=== PATIENT | female | born 1990 | race Caucasian/White ===

== ENCOUNTER 2023-08-22 14:26 | Emergency (ER) | payer SELFPAY ==
--- OUTSIDE RECORDS SUMMARY | 2023-08-22 14:29 | XMS REPORT | Continuity of Care Document ---
Author Name Unknown Address [address] [facility] [address] [place] [address] [facility] Address [address] [facility] [address] [place] [address] Care Team Providers Care Oil Burner Name Role Phone KNOW, DOES_NOT Admitting Clinician Unavailable Payers Payer Name Policy Type Policy Number Effective Date Expirati on Date Source Quincy Martin [id number] 2017 00:00:00 Allergies, Adverse Reactions, Alerts Allergy Name Allergy Type Status Severity Reaction(s) Onset Date Inactive Date Treating Clinician Comments Source No Known Allergie s DA Active U 05-10 00:00: [address] [facility] No Known Allergie s DA Active U 05-10 00:00: [address] [facility] No Known Intolera nces DA Active U 2008-05 00:00: [address] [facility] Encounters Start Date/Time End Date/Time Encounter Type Admission Type Attending Clinicians Care Facility Care Department Encounter ID Source 2021-07-28 12:01:29 Outpatient [facility] [id number] [facility] 2019-05-05 02:14:00 Inpatient [facility] NEVAEH [id number] [facility] Results Test Description Test Time Test Comments Results Result Co mments Source - CT HEAD/BRAIN W/O [id number] 03:04:00Patient Name: BESS OLGUIN Unit No: [id number] EXAMS: CPT CODE: [id number] CT HEAD/BRAIN W/O CONT 09951 EXAM: - CT HEAD/BRAIN W/O CONT LOCATION: H57 HISTORY: 29 years-year old Female with poss. seizure TECHNIQUE: Computerized tomography images from the skull base to the vertex were obtained. Coronal and sagittal reformatted images are provided. This exam was performed according to our departmental dose-optimization program, which includes automated exposure control, adjustment of the mA and/or kV according to patient size and/or use of iterative reconstruction technique COMPARISON: None FINDINGS: Brain: The brain parenchyma is unremarkable. There is no evidence of an acute territorial infarct. There is no mass effect, midline shift, or parenchymal edema. Ventricles/Extra-axial spaces:There is no acute intracranial hemorrhage or extra-axial fluid collection. The ventricles are unremarkable. No basal cistern effacement. Bones: There is no evidence of acute displaced calvarial fracture. Sinuses: The visualized paranasal sinuses and mastoid air cells are clear. Other/Soft Tissues: Unremarkable. IMPRESSION: 1. No CT evidence of acute intracranial abnormality. at 0304 Reported and signed by: Nish Morley MD CC: Álvaro Parker MD Dictated Date/Time: 05/05/2019 (0304) Technologist: Joe Yap CTDI: 45.37 DLP:819.60 Trnscrpt: 05/05/2019 (0304) Sherry.[email or web address] [facility] NAME: BESS OLGUIN [address] [place] [address] Blvd PHYS: Álvaro Schumacher MD [place], [place] [address] : 1990 AGE: 29 SEX: F LOC: B.ERS PHONE #: [phone] EXAM DATE: 05/05/2019 STATUS: PRE ER FAX #: [phone] RAD #: D/C DT PAGE 1 Signed Report Patient Name: BESS OLGUIN Unit No: [id number] EXAMS: CPT CODE: [id number] CT HEAD/BRAIN W/O CONT 12419 (Continued) Orig Print D/T: S: 05/05/2019 (0307) LUCINA Black NAME: BESS OLGUIN [address] [place] [address] Blvd PHYS: Álvaro Schumacher [place], [place] [address] : 1990 AGE: 29 SEX: F LOC: B.ERS PHONE #: [phone] EXAM DATE: 05/05/2019 STATUS: PRE ER FAX #: [phone] RAD #: D/C DT PAGE 2 Signed ReportCHEMISTRY 7 [id number] 02:53:00* Test Item Value Reference Range Interpretation Comme nts IONIZED CALCIUM (test code = CAIABG) mmol/L 1.13-1.32 ISTAT-TCO2 VENOUS (test code = TCO2VP) MMOL/L 21-32 N ISTAT-SODIUM (test code = NAP) MMOL/L 135-148 ISTAT-POTASSIUM (test code = KP) MMOL/L 3.5-5.9 ISTAT-CHLORIDE (test code = CLP) MMOL/L 98-106 ISTAT-ANION GAP (test code = GAPP) MEQ/L 10-20 ISTAT-GLUCOSE (test code = GLUP) MG/DL 70-119 N ISTAT-BUN (test code = BUNP) MG/DL 8-28 N BEDSIDE CREATININE (test cod e = CREATBED) MG/DL 0.6-1.2 N GLOMERULAR FILTRATION RATE P OC (test code = GFRBED) 86 71-165 N CHEMISTRY 7 [id number] 02:53:00* Test Item Value Reference Range Interpretation Comme nts IONIZED CALCIUM (test code = CAIABG) 1.17 mmol/L 1.13-1.32 N ISTAT-TCO2 VENOUS (test code = TCO2VP) 22 MMOL/L 21-32 N ISTAT-SAMPLE SOURCE (test code = SRCIST) VENOUS SPECIMEN Descript Specimen ISTAT-SODIUM (test code = NAP) 137 MMOL/L 135-148 N ISTAT-POTASSIUM (test code = KP) 3.8 MMOL/L 3.5-5.9 N ISTAT-CHLORIDE (test code = CLP) 105 MMOL/L 98-106 N ISTAT-ANION GAP (test code = GAPP) 16.0 MEQ/L 10-20 N ISTAT-GLUCOSE (test code = GLUP) 117 MG/DL 70-119 N ISTAT-BUN (test code = BUNP) 10 MG/DL 8-28 N BEDSIDE CREATININE (test code = CREATBED) 0.8 MG/DL 0.6-1.2 N GLOMERULAR FILTRATION RATE POC (test code = GFRBED) 86 71-165 N Notes Date/Time Note Provider Source 2019-05-05 03:16:00 [id number] 6:00 [facility] [place] [facility] ([facility])EMERGENCY PROVIDER REPORTREPORT#:[id number] REPORT STATUS: SignedDATE:05/05/19 TIME: 0316 PATIENT: BESS OLGUIN UNIT #: [id number]#: [id number] ROOM/BED:AGE: 29 SEX: F PCP PHYS: DOES_NOT KNOWSERVICE AUTHOR: Álvaro Parker MD * ALL edits or amendments must be made on the electronic/computer document * HPI-General Illness Free Text HPI NotesFree Text HPI Notes29 y/o F presents to the ED from alf with c/o head pain following a possible seizure with LOC and hitting the floor. Pt has a hx of seizures, which she does not take medicine for, and stated that she "felt like she was going to have a seizure", but per the EMS there was no witness of the fall, or evidence of seizure. Pt has a hx of anxiety. There were no further complaints given at this time. GeneralConfirmed Patient YesPatient Type New patientInitial Greet Date/Time 05/05/19 0218Assumed Care at Time 0220 Date 05/05/19 PresentationChief Complaint Possible seizure, LOC, and Head painHx Obtained From ParamedicSudden in Onset? YesOnset Occurred TodaySymptom Duration Since onsetProgression since Onset ConstantCaused by LOCContext: [facility] HeadQuality PainfulRadiationDoes not radiate. Severity: Onset MildSeverity: Current MildAssociated withReports: Loss of consciousness. Associated Other Pt denies other symptoms Portions of this section were scribed by Tricia Gonsales on 05/05/19 at 0329 Review of Systems ROS StatementsAll systems rev neg except as marked. Review of SystemsConstitutionalDenies: Chills, Fever. EyesDenies: Blurred R, Blurred L. Ears/Nose/ThroatDenies: Ear drainage R, Ear drainage L. RespiratoryDenies: Cough, productive, Shortness of breath. CardiovascularDenies: Chest pain, Palpitations. GIDenies: Abdominal pain, Vomiting. FemaleDenies: Dysuria, Flank pain. MusculoskeletalDenies: Back pain, Extremity pain. SkinDenies: Abrasion, Abscess. Allergy/ImmunDenies: Hives, Itching. NeurologicReports: Change LOC. Denies: Confusion. PsychiatricReports: Anxiety. Denies: Suicidal ideation. Portions of this section were scribed by Tricia Gonsales on 05/05/19 at 0318 Past Medical History - AdultStated Complaint FALL, SYNCOPE. HX SZAllergiesCoded Allergies:No Known Allergies (05/10/18) Home MedicationsReported MedicationshydrOXYzine PAMOATE (VISTARIL) 50 MG PO QAM hydrOXYzine PAMOATE (VISTARIL) 100 MG PO QPM MIRTAZAPINE (REMERON) 45 MG PO BEDTIME SERTRALINE (ZOLOFT) 100 MG PO QPM Additional Medical HistoryNone reportedAdditional Surgical Historynone reportedAdditional Family HistorynoncontributorySmoking status for patients 13 years old or older: Former Smoker Portions of this section were scribed by Tricia Gonsales on 05/05/19 at 0316 Physical Exam Vital SignsVital SignsFirst Documented: Result Date Time Pulse Ox 98 05/05 214 B/P 120/89 05/05 214 B/P Mean 99 05/05 214 O2 Delivery Room air 05/05 214 Temp 98.6 05/05 214 Pulse 112 05/05 214 Resp 18 05/05 214 Last Documented: Result Date Time Pulse Ox 98 05/05 318 B/P 120/79 05/05 318 B/P Mean 92 05/05 318 O2 Delivery Room air 05/05 318 Pulse 78 05/05 318 Resp 18 05/05 318 Temp 98.6 05/05 214 Review of Vital Signs Reviewed Physical ExamGeneral/Const General/Const Awake, Alert Text/Dict NotesSoft tissue swelling to L temporal areaEyes Eyes EOMI Text/Dict NotesDilated pupilsEars/Nose/Throat Ears/Nose/Throat Airway patent, Mucous membranes moistMS Neck Neck Full range of motion, Non-tenderResp/Chest Respiratory/Chest Breath sounds NL, Breath sounds = bilatCardiovascular Cardiovascular Heart rate NL, Regular rhythm, Heart sounds NLAbdomen/GI Abdomen/GI Soft, Non-tenderMS Back Back Full range of motion, Non-tenderMS Upper Extrem Upper Extremity/MS Full range of motion, Non-tenderMS Wrist/Hand Wrist/Hand Full range of motion, Non-tenderMS Lower Extrem Lower Ext/Pelvis/MS Full range of motion, Non-tenderMS Ankle/Foot Ankle/Foot Full range of motion, Non-tenderSkin Skin Color NL, No rashNeurologic Neurologic Oriented X3, Speech NLPsychiatric Text/Dict NotesBizare affect Portions of this section were scribed by Tricia Gonsales on 05/05/19 at 0329 Interpretation Diagnostics Lab Results InterpretationResultsLaboratory Tests: 05/05 05/05 0250 0243 Blood Gas VBG Total CO2 (21 - 32 MMOL/L) 22 Ionized Calcium (1.13 - 1.32 mmol/L) 1.17 Instrument (Specimen Descript) VENOUS SPECIMEN Chemistry POC Sodium (135 - 148 MMOL/L) 137 POC Potassium (3.5 - 5.9 MMOL/L) 3.8 POC Chloride (98 - 106 MMOL/L) 105 Anion Gap (10 - 20 MEQ/L) 16.0 POC BUN (8 - 28 MG/DL) 10 POC Creatinine (0.6 - 1.2 MG/DL) 0.8 Estimated GFR (MDRD) (71 - 165) 86 POC Glucose (70 - 119 MG/DL) 117 Prolactin (2.8 - 29.2 NG/ML) 11.5 Recent Impressions:CAT SCAN - CT HEAD/BRAIN W/O CONT 05/05 0240 Report Impression - Status: SIGNED Entered: 05/05/2019 0307 IMPRESSION: 1. No CT evidence of acute intracranial abnormality. Impression By: [email or web address] - Nish Morley MD Point of Care TestingPulse Oximetry Pulse Ox % 98 On: Room air Interpretation Interpreted by me Time 317 Portions of this section were scribed by Tricia Gonsales on 05/05/19 at 0316 Re-Evaluation MDM Re-Evaluation/Progress #1Text/Dict NoteRe-evaluated pt. Reviewed pt's lab and imaging results. Discussed pt's current condition and sx. Pt has been made aware of their diagnosis. Advised that pt will be admitted for further evaluation and care. Pt understands and is agreeable to plan of care. All questions/concerns were addressed.Time of Re-Eval 317 Portions of this section were scribed by Tricia Gonsales on 05/05/19 at 0316 Patient Discharge Departure Vital Signs/ConditionVital SignsFirst Documented: Result Date Time Pulse Ox 98 05/05 0215 B/P 120/89 05/05 0215 B/P Mean 99 05/05 0215 O2 Delivery Room air 05/05 214 Temp 98.6 05/05 0215 Pulse 112 05/05 0215 Resp 18 05/05 0215 Last Documented: Result Date Time Pulse Ox 98 05/05 0319 B/P 120/79 05/05 0319 B/P Mean 92 05/05 0319 O2 Delivery Room air 05/05 318 Pulse 78 05/05 031 Resp 18 05/05 031 Temp 98.6 05/05 0215 All vital signs available at the time of this entry have been reviewed. Clinical ImpressionClinical ImpressionPrimary Impression: Head contusionTime of Impression 316 Disposition DecisionDischarge )( Discharged to Home Yes )( Time 316 )( Date 05/05/19 Supervising Physician Note Scribe StatementTricia Gonsales, 05/05/19316, scribing for and in the presence of [Álvaro Parker].Signed By: Tricia Gonsales, 05/05/19316 Provider Scribed StatementI personally performed the services described in this documentation and reviewedthe documentation that was dictated to the scribe(s) in my presence, and it accurately records my words and actions. Álvaro Parker, 05/05/19 Portions of this section were scribed by Tricia Gonsales on 05/05/19 at 0329 at 2141RPT #:[id number] OF REPORTUnited [facility] Healthcare System department [id number]:16:00B.[id number] ilable for patient [id number]:41:53 [facility]
[2023-08-22 15:45] LABS: Absolute Basophils 0.1 K/uL (0-0.5); Absolute Eosinophils 0.1 K/uL (0-0.5); Absolute Lymphocytes (CBC) 1.8 K/uL (0.7-4.9); Absolute Monocytes 0.5 K/uL (0.1-1.3); Absolute Neutrophil 3.7 K/uL (1.8-8.0); Basophils % 1.4 % (0-1.3); Eosinophils % 1.5 % (0-4.4); Hematocrit 42.1 % (36.0-45.0); Hemoglobin 14.1 g/dL (12.0-15.0); Lymphocytes % 28.5 % (15.3-44.8); MCH 29.2 pg (27.0-35.0); MCHC 33.6 g/dL (32.0-36.0); MPV 7.6 fL (7.6-11.3); Monocytes % 8.6 % (3.3-12.3); Nucleated Red Blood Cells % 0.1 % (0-0); Platelets 505 thou/uL (152-406); RBC Red Blood Cell Count 4.84 M/uL (3.86-4.86); Red Cell Distribution Width 13.9 % (12.1-15.2)
[2023-08-22 16:21] LABS: Anion Gap 9.8 mEq/L (5.0-15.0); BUN Blood Urea Nitrogen 6 mg/dL (7-18); Bicarbonate 27 mEq/L (21-32); Glomerular Filtration Rate 98 ml/min (=/>90); Glucose Level 113 mg/dL (74-106); Potassium 2.8 mEq/L (3.5-5.1); Sodium Level 136 mEq/L (136-145)
[2023-08-22 16:22] LABS: Specific Gravity 1.028 (1.005-1.030); Sqamous Epithelial 20-50 /HPF (None Seen); Urine Bacteria None Seen /HPF (<20); Urine Bilirubin NEGATIVE (Negative); Urine Blood Negative (Negative); Urine Clarity Extremely Turbid (Clear); Urine Color Yellow (Yellow); Urine Culture Reflex Order NOT NEEDED; Urine Glucose NEGATIVE (Negative); Urine Ketones TRACE (Negative); Urine Microscopic Reflex YN ORDER UMIC; Urine Mucus 4+ /HPF (None Seen); Urine Nitrite NEGATIVE (Negative); Urine Protein 1+ (Negative); Urine RBC 21-50 /HPF (None Seen); Urine Urobilinogen Normal (Normal); Urine WBC 20-50 /HPF (<5); Urine WBC Clump Occasional /HPF (None Seen)
[2023-08-22 16:34] LABS: HCG, Quantitative < 1 mIU/mL (1-3)
[2023-08-22 16:37] LABS: Specific Gravity 1.028 (1.005-1.030)
[2023-08-22] MEDS ORDERED: POTASSIUM 25 MEQ EFFERV TAB ONE (16:49)
[2023-08-22] MEDS ORDERED: NA CHLORIDE 0.9% 100 ML ONE (17:52)
[2023-08-22] MEDS ORDERED: CEFTRIAXONE 1000 MG/VIAL ONE (17:52)
--- NOTE | 2023-08-22 17:53 | RAD REPORT ---
EXAM DESCRIPTION: US - Transvaginal Study Probe - 08/22/2023 5:07 pm CLINICAL HISTORY: Vaginal bleeding COMPARISON: 1999 FINDINGS: The uterus measures 7 x 3 x 4 cm. A fibroid is not seen. The endometrial stripe measures 5 millimeters Right ovary is normal in size and echotexture. A 3.7 centimeter left ovarian cyst. It likely is benign. Blood flow is present to the left ovary. The right and left adnexa unremarkable No significant free fluid is seen. IMPRESSION: 3.7 centimeter left ovarian cyst. Follow up imaging is not recommended
--- NOTE | 2023-08-22 17:57 | ER ---
Nurse's Notes [facility] Name: Imelda Hill Age: 33 yrs Sex: Female : 1990 Arrival Date: 08/22/2023 Time: 14:26 Bed 4 Private MD: Diagnosis: Abnormal uterine and vaginal bleeding, unspecified;UTI/ Urinary tract infection, site not specified;Hypokalemia Presentation: 08/21 14:41 Chief complaint: Patient states: Vaginal bleeding for 3 days. Now has pelvic pressure ll1 and pain. Thought maybe she was having a miscarriage although she had no positive tests. Coronavirus screen: Client denies travel out of the [place] in the last 14 days. At this time, the client does not indicate any symptoms associated with coronavirus-19. Ebola Screen: Patient denies travel to an Ebola-affected area in the 21 days before illness onset. Initial Sepsis Screen: Does the patient meet any 2 criteria? No. Patient's initial sepsis screen is negative. Does the patient have a suspected source of infection? No. Patient's initial sepsis screen is negative. Risk Assessment: Do you want to hurt yourself or someone else? Patient reports no desire to harm self or others. Onset of symptoms was August 20, 2023. 14:41 Method Of Arrival: Ambulatory ll1 14:41 Acuity: DEBBY 3 ll1 Historical: - Allergies: 14:34 No Known Drug Allergies; bp - PMHx: 14:41 None; ll1 - PSHx: 14:41 LEEP; ll1 - Immunization history:: Adult Immunizations up to date. - Infectious Disease History:: Denies. - Social history:: Smoking status: Reported history of juuling and/or vaping. Screenin:42 [facility] ED Fall Risk Assessment (Adult) Score/Fall Risk Level 0 - 2 = Low Risk. Abuse iw screen: Denies threats or abuse. Denies injuries from another. Nutritional screening: No deficits noted. Tuberculosis screening: No symptoms or risk factors identified. Assessment: 15:42 General: Appears in no apparent distress. Behavior is. Pain: Complains of pain in groin iw and suprapubic area. Neuro: Level of Consciousness is awake, alert, obeys commands, Oriented to person, place, time, situation, Moves all extremities. Full function. Respiratory: Respiratory effort is even, unlabored, Respiratory pattern is regular, symmetrical. GI: Abdomen is non-distended. : Reports pain in suprapubic area vaginal bleeding that is. Derm: Skin is intact, is healthy with good turgor. Musculoskeletal: Range of motion: intact in all extremities. 16:55 Reassessment: Patient and/or family updated on plan of care and expected duration. Pain rs5 level reassessed. Patient is alert, oriented x 3, equal unlabored respirations, skin warm/dry/pink. Patient denies pain at this time. Patient states feeling better. Patient states symptoms have improved. 17:57 Reassessment: No changes from previously documented assessment. rs5 Vital Signs: 14:41 BP 141 / 77; Pulse 73; Resp 16; Temp 97; Pulse Ox 100% ; Weight 88.45 kg; Height 5 ft. ll1 6 in. ; Pain 7/10; 17:00 BP 135 / 79; Pulse 70; Resp 18; Temp 97(O); Pulse Ox 99% on R/A; rs5 17:58 BP 130 / 80; Pulse 75; Resp 18; Pulse Ox 99% on R/A; rs5 14:41 Body Mass Index 31.47 (88.45 kg, 167.64 cm) ll1 14:41 Pain Scale: Adult ll1 ED Course: 14:29 Patient arrived in ED. rg4 14:31 Claribel Raza PA-C is PHCP. sb4 14:31 Carmelo Evangelista MD is Attending Physician. sb4 14:34 Arm band placed on Patient placed in an exam room, on a stretcher. bp 14:43 Triage completed. ll1 14:45 Patient has correct armband on for positive identification. Placed in gown. Bed in low rs5 position. Call light in reach. Side rails up X2. 15:05 Jason Lubin, BART is Primary Nurse. rs5 15:31 Initial lab(s) drawn, Repeat lab(s) drawn. sent to lab. Urine collected: clean catch jg11 specimen, clear, marifer colored. Inserted saline lock: 20 gauge in right antecubital area, using aseptic technique. Blood collected. 15:31 Abo/rh Typing Sent. jg11 15:31 CBC with Diff Sent. jg11 15:31 Test, Urine Sent. jg11 15:31 Quantitative Hcg Sent. jg11 15:31 Urinalysis w/ reflexes Sent. jg11 17:09 Transvaginal Study (probe) In Process Unspecified. EDMS 17:56 Ailza Garcia MD is Referral Physician. sb4 17:57 No provider procedures requiring assistance completed. rs5 18:14 IV discontinued, intact, bleeding controlled, No redness/swelling at site. Pressure bp dressing applied. 18:15 Provided Education on: N/A. bp Administered Medications: 17:13 Drug: Potassium PO Effervescent Tablet 50 mEq PO once; dissolve in 4 ounces of water or iw juice Route: PO; 17:59 Follow up: Response: No adverse reaction rs5 17:59 Drug: Rocephin IV 1 grams IV at calculated rate once; Given slow IV push per pharmacy rs5 instructions Route: IV; Rate: calculated rate; Site: left antecubital; 17:59 Follow up: Response: No adverse reaction rs5 18:08 Follow up: IV Status: Completed infusion; IV Intake: 100ml bp Medication: 15:43 VIS not applicable for this client. iw Intake: 18:08 IV: 100ml; Total: 100ml. bp Outcome: 17:56 Discharge ordered by MD. sb4 18:14 Discharged to home ambulatory, with family, bp 18:14 Condition: stable 18:14 Discharge instructions given to patient, Instructed on discharge instructions, follow up and referral plans. medication usage, Demonstrated understanding of instructions, follow-up care, medications, Prescriptions given X 1, 18:15 Patient left the ED. bp Signatures: Dispatcher [employer] EDNY Reyna Vera RN RN iw Garcia, Rubi rg4 Lucho Byrne RN RN bp Quyen Olivia RN RN ll1 Claribel Raza, PA-C PA-C sb4 Jason Lubin RN RN rs5 Quincy Carty jg11
--- NOTE | 2023-08-22 17:57 | EDPHYS ---
Physician Documentation [facility] Name: Imelda Hill Age: 33 yrs Sex: Female : 1990 Arrival Date: 08/22/2023 Time: 14:26 Bed 4 Private MD: ED Physician Carmelo Evangelista HPI: 08/21 14:49 This 33 yrs old Female presents to ER via Ambulatory with complaints of Vaginal Pain. sb4 14:49 vaginal bleeding and pelvic pain x 3 days. does not think it is her menstrual cycle, sb4 thinks she may be having a miscarriage, although has not had a positive test. spotted last month, last normal menstrual cycle 2 months ago. Historical: - Allergies: 14:34 No Known Drug Allergies; bp - PMHx: 14:41 None; ll1 - PSHx: 14:41 LEEP; ll1 - Immunization history:: Adult Immunizations up to date. - Infectious Disease History:: Denies. - Social history:: Smoking status: Reported history of juuling and/or vaping. ROS: 14:49 Positive for pelvic pain, vaginal bleeding, menstrual abnormality, sb4 14:49 Constitutional: Negative for fever, chills, and weight loss, 14:49 All other systems are negative, Exam: 14:49 Constitutional: This is a well developed, well nourished patient who is awake, alert, sb4 and in no acute distress. Head/Face: Normocephalic, atraumatic. Eyes: Extra-ocular motions intact. Periorbital areas with no swelling, redness, or edema. ENT: Mucous membranes moist. Cardiovascular: Regular rate and rhythm with a normal S1 and S2. Respiratory: Lungs have equal breath sounds bilaterally, clear to auscultation and percussion. No rales, rhonchi or wheezes noted. No increased work of breathing, no retractions or nasal flaring. Abdomen/GI: Soft, non-tender, no distension. Skin: Warm, dry with normal turgor. Normal color with no rashes, no lesions, and no evidence of cellulitis. MS/ Extremity: Pulses equal, no cyanosis. Neurovascular intact. Full, normal range of motion. Neuro: Awake and alert, GCS 15, oriented to person, place, time, and situation. Motor strength 5/5 in all extremities. Sensory grossly intact. Vital Signs: 14:41 BP 141 / 77; Pulse 73; Resp 16; Temp 97; Pulse Ox 100% ; Weight 88.45 kg; Height 5 ft. ll1 6 in. ; Pain 7/10; 17:00 BP 135 / 79; Pulse 70; Resp 18; Temp 97(O); Pulse Ox 99% on R/A; rs5 17:58 BP 130 / 80; Pulse 75; Resp 18; Pulse Ox 99% on R/A; rs5 14:41 Body Mass Index 31.47 (88.45 kg, 167.64 cm) ll1 14:41 Pain Scale: Adult ll1 MDM: 14:44 Patient medically screened. sb4 17:56 Data reviewed: vital signs, nurses notes, lab test result(s), radiologic studies, and sb4 as a result, I will discharge patient. Counseling: I had a detailed discussion with the patient and/or guardian regarding the historical points, exam findings, and any diagnostic results supporting the discharge/admit diagnosis, lab results, radiology results, to return to the emergency department if symptoms worsen or persist or if there are any questions or concerns that arise at home. 08/21 14:48 Order name: Abo/rh Typing; Complete Time: 16:17 sb4 08/21 14:48 Order name: Basic Metabolic Panel; Complete Time: 16:36 sb4 08/21 14:48 Order name: CBC with Diff; Complete Time: 15:48 sb4 08/21 14:48 Order name: Test, Urine; Complete Time: 16:39 sb4 08/21 14:48 Order name: Quantitative Hcg; Complete Time: 16:36 sb4 08/21 14:48 Order name: Urinalysis w/ reflexes; Complete Time: 16:30 sb4 08/21 16:37 Order name: Transvaginal Study (probe); Complete Time: 17:54 sb4 08/21 14:48 Order name: IV Saline Lock; Complete Time: 15:31 sb4 08/21 14:48 Order name: Labs collected and sent; Complete Time: 15:31 sb4 Administered Medications: 17:13 Drug: Potassium PO Effervescent Tablet 50 mEq PO once; dissolve in 4 ounces of water or iw juice Route: PO; 17:59 Follow up: Response: No adverse reaction rs5 17:59 Drug: Rocephin IV 1 grams IV at calculated rate once; Given slow IV push per pharmacy rs5 instructions Route: IV; Rate: calculated rate; Site: left antecubital; 17:59 Follow up: Response: No adverse reaction rs5 18:08 Follow up: IV Status: Completed infusion; IV Intake: 100ml bp Disposition: 19:02 Co-signature as Attending Physician, Carmelo Evangelista MD I reviewed the patient's care rt provided by the Advanced Practice Provider and agree with the diagnosis and treatment plan. Disposition Summary: 08/22/23 17:56 Discharge Ordered Notes: Location: Home sb4 Problem: new sb4 Symptoms: have improved sb4 Condition: Stable sb4 Diagnosis - Abnormal uterine and vaginal bleeding, unspecified sb4 - UTI/ Urinary tract infection, site not specified sb4 - Hypokalemia sb4 Followup: sb4 - With: Aliza Garcia MD - When: As needed - Reason: Recheck today's complaints, Re-evaluation by your physician Discharge Instructions: - Discharge Summary Sheet sb4 - Abnormal Uterine Bleeding sb4 - Urinary Tract Infection, Adult, Rhuf-ll-Wwfm sb4 - Hypokalemia sb4 Forms: - Thank You Letter sb4 - Antibiotic Education sb4 - Patient Portal Instructions sb4 - Leadership Thank You Letter sb4 Prescriptions: - Macrobid 100 mg Oral Capsule - take 1 capsule ORAL route every 12 hours for 7 days; 14 capsule; Refills: 0, sb4 Product Selection Permitted Signatures: Dispatcher [employer] EDReyna Aguiar RN RN Lucho Byrne RN RN bp Quyen Olivia RN RN ll1 Claribel Raza PA-C PA-C sb4 Carmelo Evangelista MD MD rt Jason Lubin RN RN rs5 Corrections: (The following items were deleted from the chart) 14:49 14:49 ABO/RH TYPING+BB.LAB.BRZ ordered. EDMS EDMS 14:49 14:49 BASIC METABOLIC PANEL+C.LAB.BRZ ordered. EDMS EDMS 14:49 14:49 CBC+H.LAB.BRZ ordered. EDMS EDMS 14:49 14:49 Test, Urine+UC.LAB.BRZ ordered. EDMS EDMS 14:49 14:49 QUANTITATIVE HCG+C.LAB.BRZ ordered. EDMS EDMS 14:49 14:49 Urinalysis+U.LAB.BRZ ordered. EDMS EDMS
[2023-08-22 18:23] VITALS: BP 130/80; TEMP 97; O2SAT 99
== END 2023-08-22 18:15 | disposition home or self-care (01) ==
LOC: ER 14:26
DX: N39.0 Urinary tract infection, site not specified (principal); E87.6 Hypokalemia
CPT/HCPCS: 36415; 76830; 80048; 81001; 81025; 84702; 85025; 86900; 86901; 96374; 99284; J0696

== ENCOUNTER 2023-10-29 18:50 | Emergency (ER) | payer BC, OTHER ==
--- OUTSIDE RECORDS SUMMARY | 2023-10-29 18:53 | XMS REPORT | Continuity of Care Document ---
Author Name Unknown Address [address] [place] [address] [facility] Address 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 Mill Operator Name Role Phone KNOW, DOES_NOT Admitting Clinician Unavailable Payers Payer Name Policy Type Policy Number Effective Date Expirati on Date Source Quincy Martin [id number] 2017 00:00:00 Allergies, Adverse Reactions, Alerts Allergy Name Allergy Type Status Severity Reaction(s) Onset Date Inactive Date Treating Clinician Comments Source No Known Allergie s DA Active U 05-10 00:00: 00 [facility] No Known Allergie s DA Active U 05-10 00:00: 00 [facility] No Known Intolera nces DA Active U 2008-05 00:00: 00 [facility] Encounters Start Date/Time End Date/Time Encounter Type Admission Type Attending Clinicians Care Facility Care Department Encounter ID Source 2021-07-28 12:01:29 Outpatient [facility] [id number] [facility] 2019-05-05 02:14:00 Inpatient [facility] NEVAEH [id number] [facility] Results Test Description Test Time Test Comments Results Result Co mments Source - CT HEAD/BRAIN W/O [id number] 03:04:00Patient Name: BESS OLGUIN Unit No: [id number] EXAMS: CPT CODE: [id number] CT HEAD/BRAIN W/O CONT 06968 EXAM: - CT HEAD/BRAIN W/O CONT LOCATION: [...] Yap CTDI: 45.37 DLP:819.60 Trnscrpt: 05/05/2019 (0304) [email or web address] [facility] NAME: BESS OLGUIN [address] [place] [address] Blvd PHYS: Álvaro Schumacher MD [place], [place] [address] : 1990 AGE: 29 SEX: F LOC: B.ERS PHONE #: [phone] EXAM DATE: 05/05/2019 STATUS: PRE ER FAX #: [phone] RAD #: D/C DT PAGE 1 Signed Report Patient Name: BESS OLGUIN Unit No: [id number] EXAMS: CPT CODE: [id number] CT HEAD/BRAIN W/O CONT 80332 (Continued) Orig Print D/T: S: 05/05/2019 (0307) LUCINA Blakc NAME: BESS OLGUIN [address] [place] [address] Blvd PHYS: Álvaro Schumacher [place], [place] [address] : 1990 AGE: 29 SEX: F LOC: B.ERS PHONE #: [phone] EXAM DATE: 05/05/2019 STATUS: PRE ER FAX #: [phone] RAD #: D/C DT PAGE 2 Signed ReportCHEMISTRY 7 [id number] 02:53:00* Test Item Value Reference Range Interpretation [...] = GFRBED) 86 71-165 N CHEMISTRY 7 [id number] 02:53:00* Test Item Value Reference Range Interpretation [...] Notes Date/Time Note Provider Source 2019-05-05 03:16:00 [id number]:1 6:00 [facility] ([facility])EMERGENCY PROVIDER REPORTREPORT#:[id number] REPORT STATUS: SignedDATE:05/05/19 TIME: 0316 PATIENT: BESS OLGUIN UNIT #: [id number]#: [id number] ROOM/BED:AGE: 29 SEX: F PCP PHYS: DOES_NOT KNOWSERVICE AUTHOR: Álvaro Parker MD * ALL edits or amendments must be made on the electronic/computer document * HPI-General Illness Free Text HPI NotesFree Text HPI Notes29 y/o F presents to the ED from senior care with c/o head pain following a possible [...] since Onset ConstantCaused by LOCContext: [facility]urred at [facility] HeadQuality PainfulRadiationDoes not radiate. Severity: Onset [...] 05/05 0215 O2 Delivery Room air 05/05 021 Temp 98.6 05/05 0215 Pulse 112 05/05 0215 Resp 18 05/05 0215 Last Documented: Result Date Time Pulse Ox 98 05/05 0319 B/P 120/79 05/05 0319 B/P Mean 92 05/05 0319 O2 Delivery Room air 05/05 318 Pulse 78 05/05 0319 Resp 18 05/05 0319 Temp 98.6 05/05 0215 All vital signs [...] Gonsales on 05/05/19 at 0329 at 2141RPT #:[id number] OF [facility] [id number]:16:[id number] ilable for patient [id number]:41:53 [facility]
[2023-10-29] MEDS ORDERED: HYDROCODONE/APAP 7.5/325 MG TAB ONE (19:49)
[2023-10-29] MEDS ORDERED: KETOROLAC 30 MG/ML INJ ONE (19:49)
--- NOTE | 2023-10-29 20:20 | RAD REPORT ---
EXAM DESCRIPTION: US - Transvaginal Study Probe - 10/29/2023 8:09 pm CLINICAL HISTORY: ABD PAIN Pelvic pain. COMPARISON: Transvaginal Study Probe dated 08/22/2023 FINDINGS: The uterus is normal in size, shape and echotexture. The uterus measures 7.3 cm The endometrial stripe measures 4 mm, normal. Both ovaries are normal in size, shape and echotexture. The right ovary measures 6.3 mL. The left o vary measures 3.8 mL. A hemorrhagic cyst present in the right ovary measuring 1.6 cm. No adnexal mass es. Normal Doppler blood flow was demonstrated to both ovaries. No significant pelvic ascites. IMPRESSION: Bilateral ovarian blood flow. Right ovarian hemorrhagic cyst measuring 1.6 cm which does not require follow-up.
[2023-10-29 20:23] LABS: Specific Gravity 1.033 (1.005-1.030)
--- NOTE | 2023-10-29 20:56 | ER ---
Nurse's Notes [facility] Name: Imelda Hill Age: 33 yrs Sex: Female : 1990 Arrival Date: 10/29/2023 Time: 18:50 Bed 8 Private MD: Diagnosis: Abnormal uterine and vaginal bleeding, unspecified;Other ovarian cysts Presentation: 10/28 19:24 Chief complaint: Patient states: Pt c/o vaginal bleeding and abdominal pain since tl4 yesterday. Pt states she has soaked several 'diapers'. Pt was diagnosed with cyst on her ovary in 08/2023. Coronavirus screen: At this time, the client does not indicate any symptoms associated with coronavirus-19. Ebola Screen: No symptoms or risks identified at this time. Initial Sepsis Screen: Does the patient meet any 2 criteria? No. Patient's initial sepsis screen is negative. Does the patient have a suspected source of infection? No. Patient's initial sepsis screen is negative. Risk Assessment: Do you want to hurt yourself or someone else? Patient reports no desire to harm self or others. Onset of symptoms was October 28, 2023. 19:24 Method Of Arrival: Wheelchair tl4 19:24 Acuity: DEBBY 3 tl4 Triage Assessment: 19:29 General: Appears uncomfortable, Behavior is crying. Pain: Complains of pain in abdomen. tl4 EENT: No signs and/or symptoms were reported regarding the EENT system. Neuro: Level of Consciousness is awake, alert, obeys commands, Oriented to person, place, time, situation, Moves all extremities. Full function. Cardiovascular: Capillary refill < 3 seconds Patient's skin is warm and dry. Respiratory: Airway is patent Respiratory effort is even, unlabored, Respiratory pattern is regular, symmetrical. GI: Reports lower abdominal pain. : Reports vaginal bleeding that is bright red, with clots, heavy flow. Derm: No deficits noted. Musculoskeletal: No deficits noted. Historical: - Allergies: 19:28 No Known Allergies; tl4 - Home Meds: 19:28 None [Active]; tl4 - PMHx: 19:28 cervical cancer; tl4 - PSHx: 19:28 LEEP; tl4 - Immunization history:: Adult Immunizations unknown. - Infectious Disease History:: Denies. - Social history:: Smoking status: Patient reports the use of cigarette tobacco products, smokes one-half pack cigarettes per day. Screenin:16 Abuse screen: Denies threats or abuse. Denies injuries from another. Nutritional ha1 screening: No deficits noted. Tuberculosis screening: No symptoms or risk factors identified. 20:16 [facility] ED Fall Risk Assessment (Adult) History of falling in the last 3 months, ha1 including since admission No falls in past 3 months (0 pts) Confusion or Disorientation No (0 pts) Intoxicated or Sedated No (0 pts) Impaired Gait No (0 pts) Mobility Assist Device Used No (0 pt) Altered Elimination Score/Fall Risk Level 0 - 2 = Low Risk Oriented to surroundings, Maintained a safe environment, Educated pt \T\ family on fall prevention, incl call for assistance when getting out of bed, Hourly rounding (assess needs \T\ fall precautionary measures) done. Assessment: 19:50 General: Appears uncomfortable, Behavior is anxious, restless. Pain: Complains of pain ha1 in vaginal area Pain does not radiate. Pain currently is 10 out of 10 on a pain scale. Quality of pain is described as aching, crampy, Pain began suddenly, 2-3 days ago. Is continuous. Neuro: Level of Consciousness is awake, alert, obeys commands, Oriented to person, place, time, situation. Cardiovascular: Capillary refill < 3 seconds Patient's skin is warm and dry. Respiratory: Airway is patent Respiratory effort is even, unlabored, Respiratory pattern is regular, symmetrical. : Reports urinary frequency, vaginal bleeding that is vaginal swelling. Derm: Skin is pink, warm \T\ dry. Vital Signs: 19:24 BP 142 / 92; Pulse 76; Resp 18; Temp 97.7(TE); Pulse Ox 99% on R/A; Pain 10/10; tl4 20:09 BP 112 / 72; Pulse 64; Resp 17 S; Pulse Ox 99% on R/A; ha1 19:24 Pain Scale: Adult tl4 ED Course: 19:00 Patient arrived in ED. mg5 19:01 Macarena Marquis FNP-C is [facility]. kb 19:01 Sudhir Andre MD is Attending Physician. kb 19:27 Triage completed. tl4 19:30 Arm band placed on right wrist. tl4 20:10 US Transvaginal Study (Probe) In Process Unspecified. EDMS 20:15 Test, Urine Sent. ha1 20:15 Urinalysis w/ reflexes Sent. ha1 21:13 No provider procedures requiring assistance completed. Patient did not have IV access ss during this emergency room visit. Administered Medications: 19:56 Drug: Hydrocodone-Acetaminophen PO (7.5 mg-325 mg) 1 tabs PO once Route: PO; ha1 19:56 Drug: Ketorolac IM 30 mg IM once Route: IM; Site: right deltoid; ha1 Outcome: 20:55 Discharge ordered by . josé 21:13 Discharged to home ambulatory, ss 21:13 Condition: good 21:13 Discharge instructions given to patient, friend, Instructed on discharge instructions, follow up and referral plans. Demonstrated understanding of instructions, follow-up care, 21:13 Patient left the ED. ss Signatures: Dispatcher [employer] EDMT Macarena Marquis, SENIOR COPYWRITER-C SENIOR COPYWRITER-[place]inita Sandra RN RN Maria L Holland RN RN ha1 Nickie Murrieta mg5 Anibal Saldana RN RN tl4 Corrections: (The following items were deleted from the chart) 19:29 19:28 PMHx: None; tl4 tl4 19:29 19:28 PMHx: cervical cancer (LEEP); tl4 tl4
--- NOTE | 2023-10-29 20:56 | EDPHYS ---
Physician Documentation [facility] Name: Imelda Hill Age: 33 yrs Sex: Female : 1990 Arrival Date: 10/29/2023 Time: 18:50 Bed 8 Private MD: ED Physician Sudhir Andre HPI: 10/28 22:23 This 33 yrs old Female presents to ER via Wheelchair with complaints of Vaginal kb Bleeding, Swelling. 22:23 Pt is a 33 year old female who presents for vaginal bleeding that started yesterday and kb vaginal pain. 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 . Historical: - Allergies: 19:28 No Known Allergies; tl4 - Home Meds: 19:28 None [Active]; tl4 - PMHx: 19:28 cervical cancer; tl4 - PSHx: 19:28 LEEP; tl4 - Immunization history:: Adult Immunizations unknown. - Infectious Disease History:: Denies. - Social history:: Smoking status: Patient reports the use of cigarette tobacco products, smokes one-half pack cigarettes per day. ROS: 22:22 Constitutional: As per HPI kb Exam: 22:22 Constitutional: This is a well developed, well nourished patient who is awake, alert, kb and in no acute distress. Head/Face: Normocephalic, atraumatic. ENT: Moist Mucous membranes Cardiovascular: Regular rate Respiratory: Respirations even and unlabored. No increased work of breathing. Talking in full sentences Skin: Warm, dry with normal turgor. Normal color. MS/ Extremity: Pulses equal, no cyanosis. Neurovascular intact. Full, normal range of motion. Neuro: Awake and alert, GCS 15, oriented to person, place, time, and situation. Moves all extremities. Normal gait. 22:22 : Pelvic Exam: External exam: is normal, no appreciated Bartholin's cyst, no erythema, the nurse was present for the exam, Vital Signs: 19:24 BP 142 / 92; Pulse 76; Resp 18; Temp 97.7(TE); Pulse Ox 99% on R/A; Pain 10/10; tl4 20:09 BP 112 / 72; Pulse 64; Resp 17 S; Pulse Ox 99% on R/A; ha1 19:24 Pain Scale: Adult tl4 MDM: 19:01 Patient medically screened. kb 22:23 Differential diagnosis: ovarian cyst, urinary tract infection, bartholins cyst. Data kb reviewed: vital signs, nurses notes. Counseling: I had a detailed discussion with the patient and/or guardian regarding the historical points, exam findings, and any diagnostic results supporting the discharge/admit diagnosis, radiology results, the need for outpatient follow up, an OB/Gyne specialist, to return to the emergency department if symptoms worsen or persist or if there are any questions or concerns that arise at home. 10/28 19:40 Order name: Test, Urine; Complete Time: 20:44 kb 10/28 19:40 Order name: US Transvaginal Study (Probe); Complete Time: 20:44 kb Administered Medications: 19:56 Drug: Hydrocodone-Acetaminophen PO (7.5 mg-325 mg) 1 tabs PO once Route: PO; ha1 19:56 Drug: Ketorolac IM 30 mg IM once Route: IM; Site: right deltoid; ha1 Disposition Summary: 10/29/23 20:55 Discharge Ordered Notes: Location: Home kb Condition: Stable kb Diagnosis - Abnormal uterine and vaginal bleeding, unspecified kb - Other ovarian cysts kb Followup: kb - With: Emergency Department - When: As needed - Reason: Worsening of condition Followup: kb - With: Private Physician - When: 2 - 3 days - Reason: Recheck today's complaints, Continuance of care, Re-evaluation by your physician Discharge Instructions: - Discharge Summary Sheet kb - Ovarian Cyst, [id number] kb - Abnormal Uterine Bleeding, [id number] kb Forms: - Medication Reconciliation Form kb - Antibiotic Education kb - Prescription Opioid Use kb - Patient Portal Instructions kb - Leadership Thank You Letter kb Prescriptions: - Diclofenac Sodium 75 mg Oral tablet, delayed release (enteric coated) - take 1 tablet ORAL route 2 times per day As needed; 30 tablet; Refills: 0, kb Product Selection Permitted Addendum: 10/31/2023 07:30 Co-signature as Attending Physician, Sudhir Andre MD I reviewed the patient's care r n provided by the Advanced Practice Provider and agree with the diagnosis and treatment plan. Signatures: Dispatcher [employer] EDMacarena Gonzalez, BILLET RECORDER-C BILLET RECORDER-Ckb AndreSudhir prater MD MD rn Ayala, Heidy RN RN ha1 Anibal Saldana RN RN tl4 Corrections: (The following items were deleted from the chart) 10/28 19: PMHx: None; tl4 tl4 : PMHx: cervical cancer (LEEP); tl4 tl4
[2023-10-29 21:27] VITALS: BP 112/72; TEMP 97.7; O2SAT 99
== END 2023-10-29 21:13 | disposition home or self-care (01) ==
LOC: ER 18:50
DX: N93.9 Abnormal uterine and vaginal bleeding, unspecified (principal); N83.299 Other ovarian cyst, unspecified side; Z85.41 Personal history of malignant neoplasm of cervix uteri
CPT/HCPCS: 76830; 81025; 96372; 99284

== ENCOUNTER 2024-07-25 17:32 | Emergency (ER) | payer OTHER ==
--- OUTSIDE RECORDS SUMMARY | 2024-07-25 17:34 | XMS REPORT | Continuity of Care Document ---
Author Name Unknown Address [address] [place] [address] [facility] Address [address] [address] [place] [address] Care Team Providers Care Director Financial Planning Name Role Phone KNOW, DOES_NOT Admitting Clinician Unavailable Payers Payer Name Policy Type Policy Number Effective Date Expirati on Date Source Quincy Martin [id number] 2017 00:00:00 Allergies, Adverse Reactions, Alerts Allergy Name Allergy Type Status Severity Reaction(s) Onset Date Inactive Date Treating Clinician Comments Source No Known Allergie s DA Active U 05-10 00:00: 00 [facility] No Known Allergie s DA Active U 05-10 00:00: 00 [facility] No Known Intolera nces DA Active U 2008-05 00:00: 00 [facility] Encounters Start Date/Time End Date/Time Encounter Type Admission Type Attending Clinicians Care Facility Care Department Encounter ID Source 2021-07-28 12:01:29 Outpatient [facility] [id number] [facility] 2019-05-05 02:14:00 Inpatient [facility] NEVAEH [id number] [facility] Results Test Description Test Time Test Comments Results Result Co mments Source - CT HEAD/BRAIN W/O [id number] 03:04:00Patient Name: BESS OLGUIN Unit No: [id number] EXAMS: CPT CODE: [id number] CT HEAD/BRAIN W/O CONT 93699 EXAM: - CT HEAD/BRAIN W/O CONT LOCATION: [...] effect, midline shift, or parenchymal edema. Ventricles/Extra-axial spaces: There is no acute intracranial hemorrhage or extra-axial fluid collection. The ventricles are unremarkable. No basal cistern effacement. Bones: There is no evidence of acute displaced calvarial fracture. Sinuses: The visualized paranasal sinuses and mastoid air cells are clear. Other/Soft Tissues: Unremarkable. IMPRESSION: 1. No CT evidence of acute intracranial abnormality. at 0304 Reported and signed by: Nish Morley MD CC: Yovany CAMPBELL Dictated Date/Time: 05/05/2019 (0304) Technologist: Joe Yap CTDI: 45.37 DLP: 819.60 Trnscrpt: 05/05/2019 (0304) [email or web address] [facility] NAME: BESS OLGUIN [address] [place] [address] Blvd PHYS: Álvaro Schumacher MD [place], [place] [address] : 1990 AGE: 29 SEX: F LOC: B.ERS PHONE #: [phone] EXAM DATE: 05/05/2019 STATUS: PRE ER FAX #: [phone] RAD #: D/C DT PAGE 1 Signed Report Patient Name: BESS OLGUIN Unit No: [id number] EXAMS: CPT CODE: [id number] CT HEAD/BRAIN W/O CONT 71210 (Continued) Orig Print D/T: S: 05/05/2019 (0307) LUCINA Black NAME: BESS OLGUIN [address] [place] [address] Blvd PHYS: Álvaro Schumacher [place], [place] [address] : 1990 AGE: 29 SEX: F LOC: B.ERS PHONE #: [phone] EXAM DATE: 05/05/2019 STATUS: PRE ER FAX #: [phone] RAD #: D/C DT PAGE 2 Signed ReportCHEMISTRY 7 [id number] 02:53:00* Test Item Value Reference Range Interpretation [...] = GFRBED) 86 71-165 N CHEMISTRY 7 [id number] 02:53:00* Test Item Value Reference Range Interpretation [...] Notes Date/Time Note Provider Source 2019-05-05 03:16:00 [facility] ([facility]) EMERGENCY PROVIDER REPORT REPORT#:[id number] REPORT STATUS: Signed DATE:05/05/19 TIME: 315 PATIENT: BESS OLGUIN UNIT #: [id number] ROOM/BED: AGE: 29 SEX: F PCP PHYS: DOES_NOT KNOW SERVICE AUTHOR: Álvaro Parker MD * ALL edits or amendments must be made on the electronic/computer document * HPI-General Illness Free Text HPI Notes Free Text HPI Notes 29 y/o F presents to the ED from [facility] with c/o head pain following a possible [...] no further complaints given at this time. 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 Yes Onset Occurred Today Symptom Duration Since onset Progression since Onset Constant Caused by LOC Context: Occurred at Long-Term Location Head Quality Painful Radiation Does not radiate. Severity: Onset Mild Severity: Current Mild Associated with Reports: Loss of consciousness. Associated Other Pt denies other symptoms Portions of this section were scribed by Tricia Gonsales on 05/05/19 at 0329 Review of Systems ROS Statements All systems rev neg except as marked. Review of Systems Constitutional Denies: Chills, Fever. Eyes Denies: Blurred R, Blurred L. Ears/Nose/Throat Denies: Ear drainage R, Ear drainage L. Respiratory Denies: Cough, productive, Shortness of breath. Cardiovascular Denies: Chest pain, Palpitations. GI Denies: Abdominal pain, Vomiting. Female Denies: Dysuria, Flank pain. Musculoskeletal Denies: Back pain, Extremity pain. Skin Denies: Abrasion, Abscess. Allergy/Immun Denies: Hives, Itching. Neurologic Reports: Change LOC. Denies: Confusion. Psychiatric Reports: Anxiety. Denies: Suicidal ideation. Portions of this section were scribed by Tricia Gonsales on 05/05/19 at 0318 Past Medical History - Adult Stated Complaint FALL, SYNCOPE. HX SZ Allergies Coded Allergies: No Known Allergies (05/10/18) Home Medications Reported Medications hydrOXYzine PAMOATE (VISTARIL) 50 MG PO QAM hydrOXYzine PAMOATE (VISTARIL) 100 MG PO QPM MIRTAZAPINE (REMERON) 45 MG PO BEDTIME SERTRALINE (ZOLOFT) 100 MG PO QPM Additional Medical History None reported Additional Surgical History none reported Additional Family History noncontributory Smoking status for patients 13 years old or older: Former Smoker Portions of this section were scribed by Tricia Gonsales on 05/05/19 at 0316 Physical Exam Vital Signs Vital Signs First Documented: Result Date Time Pulse Ox 98 05/05 214 B/P 120/89 05/05 021 B/P Mean 99 05/05 0215 O2 Delivery Room air 05/05 214 Temp 98.6 05/05 021 Pulse 112 05/05 0215 Resp 18 05/05 0215 Last Documented: Result Date Time Pulse Ox 98 05/05 318 B/P 120/79 05/05 318 B/P Mean 92 05/05 318 O2 Delivery Room air 05/05 318 Pulse 78 05/05 318 Resp 18 05/05 318 Temp 98.6 05/05 0215 Review of Vital Signs Reviewed Physical Exam General/Const General/Const Awake, Alert Text/Dict Notes Soft tissue swelling to L temporal area Eyes Eyes EOMI Text/Dict Notes Dilated pupils Ears/Nose/Throat Ears/Nose/Throat Airway patent, Mucous membranes moist MS Neck Neck Full range of motion, Non-tender Resp/Chest Respiratory/Chest Breath sounds NL, Breath sounds = bilat Cardiovascular Cardiovascular Heart rate NL, Regular rhythm, Heart sounds NL Abdomen/GI Abdomen/GI Soft, Non-tender MS Back Back Full range of motion, Non-tender MS Upper Extrem Upper Extremity/MS Full range of motion, Non-tender MS Wrist/Hand Wrist/Hand Full range of motion, Non-tender MS Lower Extrem Lower Ext/Pelvis/MS Full range of motion, Non-tender MS Ankle/Foot Ankle/Foot Full range of motion, Non-tender Skin Skin Color NL, No rash Neurologic Neurologic Oriented X3, Speech NL Psychiatric Text/Dict Notes Bizare affect Portions of this section were scribed by Tricia Gonsales on 05/05/19 at 0329 Interpretation Diagnostics Lab Results Interpretation Results Laboratory Tests: 05/05 05/05 0250 0243 Blood Gas [...] Prolactin (2.8 - 29.2 NG/ML) 11.5 Recent Impressions: CAT SCAN - CT HEAD/BRAIN W/O CONT 05/05 0240 Report Impression - Status: SIGNED Entered: 05/05/2019 0307 IMPRESSION: 1. No CT evidence of acute intracranial abnormality. Impression By: [email or web address] - Nish Morley MD Point of Care Testing Pulse Oximetry Pulse Ox % 98 On: Room air Interpretation Interpreted by wa Time 0318 Portions of this section were scribed by Tricia Gonsales on 05/05/19 at 0316 Re-Evaluation MDM Re-Evaluation/Progress #1 Text/Dict Note Re-evaluated pt. Reviewed pt's lab and imaging results. Discussed pt's current condition and sx. Pt has been made aware of their diagnosis. Advised that pt will be admitted for further evaluation and care. Pt understands and is agreeable to plan of care. All questions/concerns were addressed. Time of Re-Eval 317 Portions of this section were scribed by Tricia Gonsales on 05/05/19 at 0316 Patient Discharge Departure Vital Signs/Condition Vital Signs First Documented: Result Date Time Pulse Ox 98 05/05 0215 B/P 120/89 05/05 0215 B/P Mean 99 05/05 0215 O2 Delivery Room air 05/05 214 Temp 98.6 05/05 021 Pulse 112 05/05 0215 Resp 18 05/05 0215 Last Documented: Result Date Time Pulse Ox 98 05/05 318 B/P 120/79 05/05 318 B/P Mean 92 05/059 O2 Delivery Room air 05/05 318 Pulse 78 05/05 318 Resp 18 05/05 318 Temp 98.6 05/05 0215 All vital signs available at the time of this entry have been reviewed. Clinical Impression Clinical Impression Primary Impression: Head contusion Time of Impression 316 Disposition Decision Discharge )( Discharged to Home Yes )( Time 316 )( Date 05/05/19 Supervising Physician Note Scribe Statement Tricia Gonsales, 05/05/19316, scribing for and in the presence of [Álvaro Parker]. Signed By: Tricia Gonsales, 05/05/19316 Provider Scribed Statement I personally performed the services described in this documentation and reviewed the documentation that was dictated to the scribe(s) in my presence, and it accurately records my words and actions. Álvaro Parker, 05/05/19 Portions of this section were scribed by Tricia Gonsales on 05/05/19 at 0329 at 2144 RPT #:[id number] END OF REPORT [facility]
--- NOTE | 2024-07-25 17:46 | EDPHYS ---
Physician Documentation [facility] Name: Imelda Hill Age: 34 yrs Sex: Female : 1990 Arrival Date: 07/25/2024 Time: 17:32 Bed IW1 Private MD: ED Physician Leobardo Alejandra HPI: 07/25 17:40 This 34 yrs old Female presents to ER via Unassigned with complaints of Facial Swelling.kb 17:40 Pt is a 34 year old female who presents for facial swelling that started last night. kb States she had pain for a couple of days. States she has a bad tooth, but it has never gotten swollen like this. Reports she felt hot earlier, no temperature taken. . Historical: - Allergies: 17:52 No Known Allergies; ss - PMHx: 17:52 cervical cancer; ss - PSHx: 17:52 LEEP; ss - Social history:: Smoking status: Patient reports the use of cigarette tobacco products, smokes one pack cigarettes per day. ROS: 17:43 Constitutional: As per HPI kb Exam: 17:43 Constitutional: This is a well developed, well nourished patient who is awake, alert, kb and in no acute distress. Head/Face: Normocephalic, atraumatic. Cardiovascular: Regular rate Respiratory: Respirations even and unlabored. No increased work of breathing. Talking in full sentences Skin: Warm, dry with normal turgor. Normal color. MS/ Extremity: Pulses equal, no cyanosis. Neurovascular intact. Full, normal range of motion. Neuro: Awake and alert, GCS 15, oriented to person, place, time, and situation. 17:43 Head/face: Noted is no obvious of injury or deformity except swelling, that is mild, of the left cheek, 17:43 ENT: Dental exam: gum swelling, that is moderate, specifically in the upper left cuspid (#11), upper left first bicuspid (#12) and upper left second bicuspid (#13), pain, Vital Signs: 17:40 BP 126 / 73; Pulse 91; Resp 16; Temp 98.3(TE); Pulse Ox 100% on R/A; Height 5 ft. 6 in. ss ; Pain 10/10; 17:40 Pain Scale: Adult ss MDM: 17:37 Medical Screening Exam initiated kb 17:45 Differential diagnosis: dental abscess, cellulitis, dental caries. Data reviewed: vital kb signs, nurses notes. Counseling: I had a detailed discussion with the patient and/or guardian regarding the historical points, exam findings, and any diagnostic results supporting the discharge/admit diagnosis, the need for outpatient follow up, a dentist, to return to the emergency department if symptoms worsen or persist or if there are any questions or concerns that arise at home. Administered Medications: 17:50 Drug: HYDROcodone-acetaminophen PO 5 mg-325 mg 1 tabs PO once Route: PO; ss 17:51 Follow up: Response: Medication Administered at Departure 17:50 Drug: Amoxicillin-Clavulanate PO 875 mg PO once Route: PO; 17:51 Follow up: Response: Medication administered at discharge. Disposition Summary: 07/25/24 17:45 Discharge Ordered Notes: Location: Home kb Condition: Stable kb Diagnosis - Periapical abscess without sinus kb Followup: kb - With: Emergency Department - When: As needed - Reason: Worsening of condition Followup: kb - With: Private Physician - When: 2 - 3 days - Reason: Recheck today's complaints, Continuance of care, Re-evaluation by your physician Discharge Instructions: - Discharge Summary Sheet kb - Dental Abscess kb - Dental Pain, [id number] kb Forms: - Medication Reconciliation Form kb - Antibiotic Education kb - Prescription Opioid Use kb - Patient Portal Instructions kb - Leadership Thank You Letter kb Prescriptions: - Augmentin 875-125 mg Oral Tablet - take 1 tablet ORAL route every 12 hours for 10 days; 20 tablet; Refills: 0, kb Product Selection Permitted - Diclofenac Sodium 75 mg Oral tablet, delayed release (enteric coated) - take 1 tablet ORAL route 2 times per day As needed; 30 tablet; Refills: 0, kb Product Selection Permitted Signatures: Macarena Marquis, ELAIN[facility] [employer]OW HOST-Vinita Sandra, RN RN ss Corrections: (The following items were deleted from the chart) 17:43 17:40 Pt is a 34 year old female who presents for facial swelling that started last kb night. States she has a bad tooth, but it has never gotten swollen like this. Reports she felt hot earlier, no temperature taken. . kb
[2024-07-25] MEDS ORDERED: HYDROCODONE/APAP 5/325 MG TAB ONE (17:47)
[2024-07-25] MEDS ORDERED: AMOX/K CLAV 875 MG TAB ONE (17:47)
--- NOTE | 2024-07-25 17:54 | ER ---
Nurse's Notes [facility] Name: Imelda Hill Age: 34 yrs Sex: Female : 1990 Arrival Date: 07/25/2024 Time: 17:32 Bed IW1 Private MD: Diagnosis: Periapical abscess without sinus Presentation: 07/25 17:40 Chief complaint: Patient states: L sided facial pain and swelling that began 2-3 days ss ago. Coronavirus screen: Client denies travel out of the [place] in the last 14 days. Ebola Screen: Patient denies exposure to infectious person. Patient denies travel to an Ebola-affected area in the 21 days before illness onset. Initial Sepsis Screen: Does the patient meet any 2 criteria? No. Patient's initial sepsis screen is negative. Does the patient have a suspected source of infection? No. Patient's initial sepsis screen is negative. Risk Assessment: Do you want to hurt yourself or someone else? Patient reports no desire to harm self or others. Onset of symptoms was July 23, 2024. 17:40 Method Of Arrival: Ambulatory ss 17:40 Acuity: DEBBY 5 ss Historical: - Allergies: 17:52 No Known Allergies; ss - PMHx: 17:52 cervical cancer; ss - PSHx: 17:52 LEEP; ss - Social history:: Smoking status: Patient reports the use of cigarette tobacco products, smokes one pack cigarettes per day. Assessment: 17:52 General: Appears uncomfortable, Behavior is cooperative. Pain: Complains of pain in ss left cheek and upper left second bicuspid (#13) and upper left first bicuspid (#12) and upper left cuspid (#11) Pain currently is 10 out of 10 on a pain scale. Quality of pain is described as aching, tender, Is continuous. Neuro: Level of Consciousness is awake, alert, obeys commands, Oriented to person, place, time, situation. Respiratory: Respiratory effort is even, unlabored. Derm: Skin is pink, warm \T\ dry. normal. Vital Signs: 17:40 BP 126 / 73; Pulse 91; Resp 16; Temp 98.3(TE); Pulse Ox 100% on R/A; Height 5 ft. 6 in. ss ; Pain 10/10; 17:40 Pain Scale: Adult ED Course: 17:37 Patient arrived in ED. im 17:37 Macarena Marquis FNP-C is [facility]. kb 17:37 Leobardo Alejandra MD is Attending Physician. kb 17:52 Triage completed. ss 17:52 Arm band placed on right wrist. ss 17:52 Patient has correct armband on for positive identification. ss 17:52 No provider procedures requiring assistance completed. Patient did not have IV access ss during this emergency room visit. Administered Medications: 17:50 Drug: HYDROcodone-acetaminophen PO 5 mg-325 mg 1 tabs PO once Route: PO; ss 17:51 Follow up: Response: Medication Administered at Departure ss 17:50 Drug: Amoxicillin-Clavulanate PO 875 mg PO once Route: PO; ss 17:51 Follow up: Response: Medication administered at discharge. ss Medication: 17:52 VIS not applicable for this client. ss Outcome: 17:45 Discharge ordered by MD. kb 17:53 Discharged to home ambulatory, ss 17:53 Condition: good 17:53 Discharge instructions given to patient, Instructed on discharge instructions, follow up and referral plans. medication usage, Demonstrated understanding of instructions, follow-up care, medications, Prescriptions given X 2, 17:54 Patient left the ED. ss Signatures: Macarena Marquis FNP-C FNP-Vinita Sandra, RN RN Sanjuana Bueno im
[2024-07-25 18:11] VITALS: BP 126/73; TEMP 98.3; O2SAT 100
== END 2024-07-25 17:54 | disposition home or self-care (01) ==
LOC: ER 17:32
DX: K04.7 Periapical abscess without sinus (principal); F17.210 Nicotine dependence, cigarettes, uncomplicated
CPT/HCPCS: 99283